=== PATIENT | female | born 1940 | race Hispanic/Latino ===

== ENCOUNTER → 2025-07-28 | Day surgery (SDC) | payer MEDICARE ==
[2025-07-25 12:31] LABS: BASOPHILS % 0.9 % (0.0-1.0); EOSINOPHILS % 2.9 % (0.0-6.0); LYMPHOCYTES % 23.7 % (18.0-39.1); MONOCYTES % 8.1 % (4.4-11.3); NEUTROPHILS % 64.4 % (38.7-80.0); RED CELL DISTRIBUTION WIDTH 13.1 % (11.7-14.4)
[~2025-07-28] MED LIST: CENTRUM ADULTS1 EACH PO; FAMOTIDINE20 MG PO; GLYCOPYRROLATE INJ 0.2 MG/ML VIAL ONE; HYDROXYCHLOROQ100 MG PO; LEFLUNOMIDE20 MG PO; LIDOCAINE HCL 2% LOCAL INJ 5 ML SDV VIAL INJ ONE; MELOXICAM10 MG PO; METOCLOPRAMIDE HCL 10 MG/2ML VIAL ONE; METOPROLOL SUCC25 MG PO; PROPOFOL IV EMULSION 10 MG/ML 20 ML VIAL ONE; TRAZODONE HCL50 MG PO
[2025-07-28] MEDS: LACTATED RINGER'S 1,000 ML ONE (08:01)
[2025-07-28 09:25] VITALS: TEMP 98.4
[2025-07-28 09:55] VITALS: BP 135/70; PULSE 71; RESP 14; O2SAT 95
== END | disposition home or self-care (01) ==
LOC: OR 05:53
PROVIDERS: ATTEND Internal Medicine Gastroenterology
DX: K29.60 Other gastritis without bleeding (principal); K21.00 Gastro-esophageal reflux disease with esophagitis, without bleeding; M19.90 Unspecified osteoarthritis, unspecified site; E78.00 Pure hypercholesterolemia, unspecified; E73.9 Lactose intolerance, unspecified; I10 Essential (primary) hypertension; E66.811 Obesity, class 1; G89.29 Other chronic pain; F41.9 Anxiety disorder, unspecified; Z79.1 Long term (current) use of non-steroidal anti-inflammatories (NSAID); Z79.899 Other long term (current) drug therapy; Z90.49 Acquired absence of other specified parts of digestive tract; Z68.34 Body mass index [BMI] 34.0-34.9, adult; Z01.810 Encounter for preprocedural cardiovascular examination; Z01.812 Encounter for preprocedural laboratory examination
CPT/HCPCS: 36415; 43239; 85025; 93005; J2003; J2470; J2704; J2765; J7121